=== PATIENT | female | born 1985 | race African-American/Black ===

== ENCOUNTER 2019-09-23 10:38 | Outpatient (RCR) | payer OTHER, SELFPAY | END 2019-09-23 23:59 | disposition home or self-care (01) | LOC: ANHAUDIO 10:38 | DX: Z46.1 Encounter for fitting and adjustment of hearing aid (principal) | CPT/HCPCS: V5160; V5261; V5264 ==

== ENCOUNTER 2021-09-22 13:00 | Outpatient (RCR) | payer OTHER, SELFPAY | END 2021-09-22 23:59 | disposition home or self-care (01) | LOC: ANHAUDIO 13:00 | DX: Z46.1 Encounter for fitting and adjustment of hearing aid (principal) | CPT/HCPCS: 99199; V5264 ==

== ENCOUNTER 2023-06-11 09:25 | Outpatient (CLI) | payer OTHER, SELFPAY ==
[2023-06-11 09:40] LABS: Basophils Absolute Auto 0.1 K/mm3 (0.0-0.1); Basophils Percent Auto 1.3 % (0.2-1.2); Eosinophils Absolute Auto 0.2 K/mm3 (0-0.3); Eosinophils Percent Auto 2.4 % (0-4.4); Hematocrit 37.4 % (37.0-47.0); Hemoglobin 11.5 g/dL (12.0-15.0); Immature Granulocyte Absolute 0.01 K/mm3 (0.00-0.031); Immature Granulocyte Percent A 0.1 % (0-0.5); Immature Platelet Fraction Pct 4.4 % (0.9-11.2); Lymphocytes Absolute Auto 1.53 K/mm3 (0.9-3.2); Lymphocytes Percent Auto 19.4 % (18.3-44.2); Mean Corpuscular HGB Conc 30.7 g/dl (32-36); Mean Corpuscular Hemoglobin 22.6 pg (26-34); Mean Corpuscular Volume 73.6 fl (80-100); Mean Platelet Volume 9.8 fl (7.4-10.4); Monocytes Absolute Auto 0.5 K/mm3 (0.1-0.6); Monocytes Percent Auto 6.3 % (2.6-8.5); Neutrophils Absolute Auto 5.6 K/mm3 (1.3-6.7); Neutrophils Percent Auto 70.5 % (45.5-73.1); Platelet Count Result 436 k/mm3 (150-375); Red Blood Count 5.08 M/mm3 (4.2-5.4); White Blood Count 7.9 K/mm3 (4.5-10.0)
[2023-06-11 09:47] LABS: Anisocytosis 1+ (NORMAL); Hypochromasia 1+ (NORMAL); Platelet Estimate Increased (Adequate); Schistocytes None Seen (NORMAL)
[2023-06-11 12:15] LABS: Iron 24 ug/dL (37-170)
[2023-06-11 12:25] LABS: Percent Iron Saturation 5 % (20-50)
[2023-06-11 12:54] LABS: Ferritin 5.89 ng/mL (6.24-137)
[2023-06-11 13:07] LABS: Alanine Aminotransferase 14 U/L (6-35); Albumin Level 4.3 g/dL (3.5-5.1); Alkaline Phosphatase 42 U/L (38-126); Anion Gap 6 mmol/L (8-16); Aspartate Amino Transferase 18 U/L (14-36); Bilirubin,Total 0.2 mg/dL (0.2-1.3); Blood Urea Nitrogen 13 mg/dL (7-17); Carbon Dioxide 28 mmol/L (22-30); Chloride 107 mmol/L (98-107); Estimated Glomerular Filt Rate > 60; Glucose 100 mg/dL (65-110); Sodium 141 mmol/L (137-145)
== END 2023-06-11 09:26 | disposition home or self-care (01) ==
LOC: ANHLAB 09:27
PROVIDERS: Visit Provider Internal Medicine Hematology & Oncology
DX: D64.9 Anemia, unspecified (principal)
CPT/HCPCS: 36415; 80053; 82607; 82728; 82746; 83540; 83550; 85025; 85055

== ENCOUNTER 2024-05-02 10:19 | Outpatient (CLI) | payer OTHER, SELFPAY ==
[2024-05-02 10:36] LABS: Hematocrit 38.4 % (37.0-47.0); Hemoglobin 12.4 g/dL (12.0-15.0); Mean Corpuscular HGB Conc 32.3 g/dl (32-36); Mean Corpuscular Hemoglobin 25.8 pg (26-34); Mean Platelet Volume 10.5 fl (7.4-10.4); Platelet Count Result 409 k/mm3 (150-375); Red Cell Distribution Width 15.1 % (11.5-14.5)
[2024-05-02 13:42] LABS: Iron 57 ug/dL (37-170)
[2024-05-02 13:43] LABS: Anion Gap 6 mmol/L (4-12); Blood Urea Nitrogen 15 mg/dL (7-17); Calcium 9.2 mg/dL (8.4-10.2); Carbon Dioxide 30 mmol/L (22-30); Chloride 105 mmol/L (98-107); Estimated Glomerular Filt Rate > 60; Glucose 79 mg/dL (65-110); Sodium 141 mmol/L (137-145)
[2024-05-02 13:52] LABS: Percent Iron Saturation 17 % (20-50)
[2024-05-02 14:52] LABS: Folic Acid 9.5 ng/mL (2.76->20); Vitamin B12 > 1000.0 pg/mL (239-931)
== END 2024-05-02 10:20 | disposition home or self-care (01) ==
LOC: ANHLAB 10:21
PROVIDERS: Nurse Practitioner Family; Visit Provider Internal Medicine Hematology & Oncology
DX: D64.9 Anemia, unspecified (principal); D51.9 Vitamin B12 deficiency anemia, unspecified
CPT/HCPCS: 36415; 80048; 82607; 82728; 82746; 83540; 83550; 85027